=== PATIENT | male | born 1970 | race Caucasian/White ===

== ENCOUNTER 2020-11-13 23:09 | Emergency (ER) | payer BC ==
[2020-11-13] MEDS ORDERED: Sodium Chloride 0.9% 10 ML Syringe FLUSH PRN (23:32)
[2020-11-13] MEDS: Lactated Ringers 1,000 ML IV ONE (23:41)
--- NOTE | 2020-11-13 23:48 | EDM.PDOC ---
ED HPI GENERAL MEDICAL PROBLEM - General Time Seen by Provider: 11/13/20 23:15 Source of Information: Reports: Patient History Limitations: Reports: No Limitations - History of Present Illness INITIAL COMMENTS - FREE TEXT/NARRATIVE: Pt. presents to ER with complaints of fatigue, myalgias, global weakness, overexposure/exertion in heat, fever, and chills. Pt. states that she started feeling run down yesterday. He states that he was feeling poorly today and "took several naps". states that she gave the patient ibuprofen this evening and he woke up extremely diaphoretic. states that he was not checking his temp, but she states that he was "burning up". He states that he has not been eating or drinking well. He states that he had a tooth pulled last . Denies any pain to the area, but states that he has noticed some continued odd taste from the extraction site. He has not noted any swelling to the area. Pt. denies any cough. No chest congestion. Denies any sore throat, rhinorrhea, ear pain, sinus congestion, headache, neck pain. Denies any abdominal pain. Denies any dysuria. No pyuria, hematuria. Denies any rashes. No diarrhea, nausea, or vomiting. Pt. does have a history of MS and has infusions of Ocrevus, but has not had an infusion in several months. He states that the overall his MS has been under good control. He feels that the symptoms he is complaining of today are new. Onset Date: 11/12/20 Location: Reports: Generalized Associated Symptoms: Reports: Diaphoresis, Fever/Chills, Malaise, Weakness. Denies: Confusion, Chest Pain, Cough, cough w sputum, Headaches, Loss of Appetite, Nausea/Vomiting, Rash, Seizure, Shortness of Breath, Syncope Bilateral Leg Pain Score (Numeric/FACES): 4 - Related Data Allergies Allergy/AdvReac Type Severity Reaction Status Date / Time No Known Allergies Allergy Verified 07/15/19 15:00 Home Meds: Home Meds Cholecalciferol (Vitamin D3) [Vitamin D3] 2,000 unit PO DAILY 07/12/14 [History] Sildenafil [Viagra] 100 mg PO ASDIRECTED PRN 07/12/14 [History] ALPRAZolam [Xanax] 0.25 mg PO BEDTIME PRN 12/20/15 [History] DULoxetine [Cymbalta] 60 mg PO BID 12/20/15 [History] Dalfampridine [Ampyra] 10 mg PO BID 05/22/18 [History] Dextroamphetamine/Amphetamine [Adderall 20 mg Tablet] 20 mg PO DAILY 05/22/18 [History] Ocrelizumab [Ocrevus] 0 mg IV Q185D 05/22/18 [History] Past Medical History Other Musculoskeletal History: Patient has diagnosis of MS Neurological History: Reports: MS ED ROS GENERAL - Review of Systems Review Of Systems: See Below Constitutional: Reports: Fever, Chills, Malaise, Weakness, Fatigue, Night Sweats, Diaphoresis HEENT: Reports: Other (Dental extraction 11/09/20.) Respiratory: Reports: No Symptoms Cardiovascular: Reports: No Symptoms Endocrine: Reports: No Symptoms GI/Abdominal: Reports: No Symptoms. Denies: Abdominal Pain, Black Stool, Bloody Stool, Constipation, Diarrhea, Distension, Hematemesis, Hematochezia, Melena, Nausea, Vomiting : Reports: No Symptoms. Denies: Dysuria, Flank Pain, Frequency, Hematuria, Incontinence, Pain, Urgency, Urinary Retention Musculoskeletal: Reports: Joint Pain, Muscle Pain, Muscle Stiffness Skin: Reports: No Symptoms Neurological: Reports: Weakness, Other (History of MS, stable.). Denies: Confusion, Dizziness, Headache, Numbness, Paresthesia, Seizure, Syncope, Tingling, Tremors, Difficulty Walking, Change in Speech, Gait Disturbance Psychiatric: Reports: No Symptoms Hematologic/Lymphatic: Reports: No Symptoms Immunologic: Reports: No Symptoms ED EXAM, GENERAL - Physical Exam Exam: See Below Exam Limited By: No Limitations General Appearance: Alert, WD/WN, No Apparent Distress Eye Exam: Bilateral Eye: EOMI, Normal Fundi, Normal Inspection, PERRL Throat/Mouth: Normal Inspection, Other (Poor dentition. Evidence of recent extraction, L upper premolar.) Head: Atraumatic, Normocephalic Neck: Normal Inspection, Supple, Non-Tender, Full Range of Motion. No: Tender Midline Respiratory/Chest: No Respiratory Distress, Lungs Clear, Normal Breath Sounds, No Accessory Muscle Use, Chest Non-Tender Cardiovascular: Normal Peripheral Pulses, Regular Rate, Rhythm, No Edema, No JVD Peripheral Pulses: 4+: Radial (L) GI/Abdominal: Soft, Non-Tender, No Organomegaly, No Distention, No Mass, Pelvis Stable (Male) Exam: Deferred Rectal (Males) Exam: Deferred Back Exam: Normal Inspection, Full Range of Motion Extremities: Normal Inspection, Normal Range of Motion, Non-Tender, No Pedal Edema, Normal Capillary Refill Neurological: Alert, Oriented, CN II-XII Intact, Normal Cognition, Normal Gait, Normal Reflexes, No Motor/Sensory Deficits Psychiatric: Normal Affect, Normal Mood Skin Exam: Warm, Intact, Normal Color, No Rash, Other (mildly diaphoretic) Lymphatic: No Adenopathy #1 Interpretation Rhythm: NSR [place]: Normal P-Wave: Present QRS: Normal ST-T: Normal QT: Normal Course - Vital Signs Last Recorded V/S: Last Vital Signs Temp 36.6 C 11/13/20 23:09 Pulse 87 11/13/20 23:09 Resp 12 11/13/20 23:09 BP 113/65 11/13/20 23:09 Pulse Ox 93 L 11/13/20 23:09 - Orders/Labs/Meds Orders: Active Orders 24 hr Category Date Time Status Chest 1V Frontal [CR] Stat Exams 11/13/20 23:33 Taken CULTURE BLOOD [BC] Stat Lab 11/13/20 23:15 Received CULTURE BLOOD [BC] Stat Lab 11/13/20 23:42 Received [facility] [REF] Routine Lab 11/13/20 23:42 Received Blood Culture x2 Reflex Set [OM.PC] Stat Oth 11/13/20 23:33 Ordered Peripheral IV Insertion Adult [OM.PC] Routine Oth 11/13/20 23:33 Ordered Labs: Laboratory Tests 11/13/20 11/13/20 11/13/20 Range/Units 23:15 23:15 23:15 WBC 7.3 (4.0-10.0) x10^3/uL RBC 5.12 (4.5-6.0) x10^6/uL Hgb 16.0 (14.0-18.0) g/dL Hct 45.3 (40.0-52.0) % MCV 88.5 (78.0-93.0) fL MCH 31.3 (26.0-32.0) pg MCHC 35.3 (32.0-36.0) g/dL RDW Coeff of Beckie 14.9 (10.0-15.0) % Plt Count 182 (130-400) x10^3/uL Neut % (Auto) 78.4 (50.0-80.0) % Lymph % (Auto) 12.2 L (25.0-50.0) % [place] % (Auto) 9.0 (2.0-11.0) % Eos % (Auto) 0.0 (0.0-4.0) % Baso % (Auto) 0.4 (0.2-1.2) % Sodium 140 (136-145) mmol/L Potassium 3.7 (3.5-5.1) mmol/L Chloride 103 (98-107) mmol/L Carbon Dioxide 23 (21-32) mmol/L Anion Gap 17.7 H (5-15) mmol/L BUN 14 (7-18) mg/dL Creatinine 1.1 (0.70-1.30) mg/dL Est Cr Clr Drug Dosing 90.80 mL/min Estimated GFR (MDRD) > 60 Glucose 107 H (70-99) mg/dL Lactic Acid 0.4 (0.4-2.0) mmol/L Calcium 8.1 L (8.5-10.1) mg/dL Corrected Calcium 8.5 (8.5-10.1) mg/dL Phosphorus 2.8 (2.6-4.7) mg/dL Magnesium 1.8 (1.8-2.4) mg/dL Total Bilirubin 0.5 (0.2-1.0) mg/dL AST 18 (15-37) U/L ALT 26 (16-63) U/L Alkaline Phosphatase 68 (46-116) U/L Troponin I High Sens 5 (<=76) ng/L C-Reactive Protein 5.2 H (<=0.9) mg/dL NT-Pro-B Natriuret Pep 149 H (<=125) pg/mL Total Protein 6.2 L (6.4-8.2) g/dL Albumin 3.5 (3.4-5.0) g/dL Globulin 2.7 Albumin/Globulin Ratio 1.30 Urine Color (YELLOW) Urine Appearance (CLEAR) Urine pH (5.0-8.0) Ur Specific [place] Urine Protein (NEGATIVE) mg/dL Urine Glucose (UA) (NEGATIVE) mg/dL Urine Ketones (NEGATIVE) mg/dL Urine Occult Blood (NEGATIVE) Urine Nitrite (NEGATIVE) Urine Bilirubin (NEGATIVE) Urine Urobilinogen (0.2) EU/dL Ur Leukocyte Esterase (NEGATIVE) Urine RBC (NOT SEEN) /HPF Urine WBC (NOT SEEN) /HPF Ur Squamous Epith Cells (NOT SEEN) /HPF Amorphous Sediment Urine Bacteria (NOT SEEN) /HPF Urine Mucus (NOT SEEN) /LPF Urine Opiates Screen (NEAGTIVE) Ur Buprenorphine Scrn (NEGATIVE) Ur Oxycodone Screen (NEGATIVE) Urine Methadone Screen (NEGATIVE) Ur Barbiturates Screen (NEGATIVE) Ur Phencyclidine Scrn (NEGATIVE) Ur Amphetamine Screen (NEGATIVE) U Methamphetamines Scrn (NEGATIVE) Urine MDMA Screen (NEGATIVE) U Benzodiazepines Scrn (NEGATIVE) U Cocaine Metab Screen (NEGATIVE) U Marijuana (THC) Screen (NEGATIVE) Ethyl Alcohol < 3 (0-3) mg/dL Influenza Type A RNA (NEGATIVE) Influenza Type B RNA (NEGATIVE) SARS-CoV-2 RNA (PALLAVI) (NEGATIVE) 11/13/20 11/13/20 11/13/20 Range/Units 23:27 23:39 23:39 WBC (4.0-10.0) x10^3/uL RBC (4.5-6.0) x10^6/uL Hgb (14.0-18.0) g/dL Hct (40.0-52.0) % MCV (78.0-93.0) fL MCH (26.0-32.0) pg MCHC (32.0-36.0) g/dL RDW Coeff of Beckie (10.0-15.0) % Plt Count (130-400) x10^3/uL Neut % (Auto) (50.0-80.0) % Lymph % (Auto) (25.0-50.0) % [place] % (Auto) (2.0-11.0) % Eos % (Auto) (0.0-4.0) % Baso % (Auto) (0.2-1.2) % Sodium (136-145) mmol/L Potassium (3.5-5.1) mmol/L Chloride (98-107) mmol/L Carbon Dioxide (21-32) mmol/L Anion Gap (5-15) mmol/L BUN (7-18) mg/dL Creatinine (0.70-1.30) mg/dL Est Cr Clr Drug Dosing mL/min Estimated GFR (MDRD) Glucose (70-99) mg/dL Lactic Acid (0.4-2.0) mmol/L Calcium (8.5-10.1) mg/dL Corrected Calcium (8.5-10.1) mg/dL Phosphorus (2.6-4.7) mg/dL Magnesium (1.8-2.4) mg/dL Total Bilirubin (0.2-1.0) mg/dL AST (15-37) U/L ALT (16-63) U/L Alkaline Phosphatase (46-116) U/L Troponin I High Sens (<=76) ng/L C-Reactive Protein (<=0.9) mg/dL NT-Pro-B Natriuret Pep (<=125) pg/mL Total Protein (6.4-8.2) g/dL Albumin (3.4-5.0) g/dL Globulin Albumin/Globulin Ratio Urine Color Dark yellow H (YELLOW) Urine Appearance Slightly cloudy H (CLEAR) Urine pH 5.5 (5.0-8.0) Ur Specific [place] >=1.030 Urine Protein Trace H (NEGATIVE) mg/dL Urine Glucose (UA) Negative (NEGATIVE) mg/dL Urine Ketones Trace H (NEGATIVE) mg/dL Urine Occult Blood Negative (NEGATIVE) Urine Nitrite Negative (NEGATIVE) Urine Bilirubin Small H (NEGATIVE) Urine Urobilinogen 1.0 (0.2) EU/dL Ur Leukocyte Esterase Negative (NEGATIVE) Urine RBC 0-5 (NOT SEEN) /HPF Urine WBC 0-5 (NOT SEEN) /HPF Ur Squamous Epith Cells Rare (NOT SEEN) /HPF Amorphous Sediment Few Urine Bacteria Rare (NOT SEEN) /HPF Urine Mucus Moderate H (NOT SEEN) /LPF Urine Opiates Screen Positive H (NEAGTIVE) Ur Buprenorphine Scrn Negative (NEGATIVE) Ur Oxycodone Screen Negative (NEGATIVE) Urine Methadone Screen Negative (NEGATIVE) Ur Barbiturates Screen Negative (NEGATIVE) Ur Phencyclidine Scrn Negative (NEGATIVE) Ur Amphetamine Screen Positive H (NEGATIVE) U Methamphetamines Scrn Negative (NEGATIVE) Urine MDMA Screen Negative (NEGATIVE) U Benzodiazepines Scrn Negative (NEGATIVE) U Cocaine Metab Screen Negative (NEGATIVE) U Marijuana (THC) Screen Negative (NEGATIVE) Ethyl Alcohol (0-3) mg/dL Influenza Type A RNA Negative (NEGATIVE) Influenza Type B RNA Negative (NEGATIVE) SARS-CoV-2 RNA (PALLAVI) Negative (NEGATIVE) Meds: Medications Discontinued Medications Generic Name Dose Route Start Last Admin Trade Name Freq PRN Reason Stop Dose Admin Lactated Ringer's 1,000 mls @ 1,000 mls/hr 11/13/20 23:35 11/13/20 23:41 Ringers, Lactated IV 11/14/20 00:34 1,000 mls/hr ONETIME ONE Administration Sodium Chloride 10 ml 11/13/20 23:32 Sodium Chloride 0.9% 10 Ml Syringe FLUSH ASDIRECTED PRN Keep Vein Open - Radiology Interpretation Free Text/Narrative:: chest x-ray negative for acute pathology - Re-Assessments/Exams Free Text/Narrative Re-Assessment/Exam: 11/14/20 00:52 Pt. reported feeling somewhat better after a liter of LR in ER. Departure - Departure Time of Disposition: 00:45 Disposition: Home, Self-Care 01 Clinical Impression: Dehydration - Discharge Information Instructions: Dehydration, Adult, [id number] Referrals: PCP,None [Primary Care Provider] - Forms: ED Department Discharge Additional Instructions: Home to rest. Push fluids. We will let you know if your [place] or blood cultures come back positive. Recheck in clinic in 7-10 days, sooner if not gradually improving. Return to ER if you have any chest pain, shortness of breath, racing heart, abdominal pain, headache or call if you have questions. Sepsis Event Note (ED) - Focused Exam Vital Signs: Vital Signs Temp Pulse Resp BP Pulse Ox 11/13/20 23:09 36.6 C 87 12 113/65 93 L - My Orders Last 24 Hours: My Active Orders 11/13/20 23:15 CULTURE BLOOD [BC] Stat 11/13/20 23:33 Chest 1V Frontal [CR] Stat Blood Culture x2 Reflex Set [OM.PC] Stat Peripheral IV Insertion Adult [OM.PC] Routine 11/13/20 23:42 CULTURE BLOOD [BC] Stat [facility] [REF] Routine - Assessment/Plan Last 24 Hours: My Active Orders 11/13/20 23:15 CULTURE BLOOD [BC] Stat 11/13/20 23:33 Chest 1V Frontal [CR] Stat Blood Culture x2 Reflex Set [OM.PC] Stat Peripheral IV Insertion Adult [OM.PC] Routine 11/13/20 23:42 CULTURE BLOOD [BC] Stat [facility] [REF] Routine Plan: Home to rest. Push fluids. We will let you know if your [place] or blood cultures come back positive. Recheck in clinic in 7-10 days, sooner if not gradually improving. Return to ER if you have any chest pain, shortness of breath, racing heart, abdominal pain, headache or call if you have questions.
[2020-11-13 23:53] VITALS: BP 113/65; PULSE 87
[2020-11-13 23:58] LABS: BARBITURATE SCREEN,URINE NEGATIVE (NEGATIVE)
[2020-11-13 23:59] LABS: BENZODIAZEPINES SCREEN,URINE NEGATIVE (NEGATIVE); METHAMPHETAMINE SCREEN, URINE NEGATIVE (NEGATIVE); THC SCREEN,URINE 50 NG/ML NEGATIVE (NEGATIVE)
[2020-11-14 00:15] LABS: CHLORIDE,CL 103 mmol/L (98-107); SODIUM,NA 140 mmol/L (136-145)
[2020-11-14 00:17] LABS: ANION GAP 17.7 mmol/L (5-15)
[2020-11-14 00:26] LABS: CORONAVIRUS COVID-19 NAA NEGATIVE (NEGATIVE)
--- NOTE | 2020-11-14 13:01 | CR ---
[id number] RAD/RAD Chest Portable EXAM: RAD Chest Portable INDICATION: FEVER,FATIGUE COMPARISON: None. DISCUSSION/IMPRESSION: Cardiomediastinal silhouette is normal in size and contour. Lungs are clear. No pleural effusion or pneumothorax. Rony Witt MD 11/14/20 1300 Thank you for allowing us to participate in the care of your patient.
== END 2020-11-14 00:40 | disposition home or self-care (01) ==
LOC: VM.ED 23:09
DX: E86.0 Dehydration (principal); Z20.822 Contact with and (suspected) exposure to COVID-19
CPT/HCPCS: 0240U; 36415; 71045; 80053; 80305-QW; 80307; 81001; 83605; 83735; 83880; 84100; 84484; 85025; 86140; 86788; 87040; 93005; 99283; J7120

== ENCOUNTER 2022-04-15 10:24 | Day surgery (SDC) | payer BC ==
[~2022-04-15 10:24] MED LIST: Lactated Ringers 1,000 ML IV SCH
[2022-04-15] MEDS ORDERED: Propofol 200 MG/20 ML SDV ONE ×3 (11:12→12:48)
[2022-04-15] MEDS ORDERED: fentaNYL 100 MCG/2 ML SDV ONE (11:12)
[2022-04-15 13:17] VITALS: BP 105/63; PULSE 95
== END 2022-04-15 14:15 | disposition home or self-care (01) ==
LOC: VM.SDS 10:24
PROVIDERS: ATTEND Surgery
DX: Z12.11 Encounter for screening for malignant neoplasm of colon (principal); D12.6 Benign neoplasm of colon, unspecified; F41.9 Anxiety disorder, unspecified; N52.9 Male erectile dysfunction, unspecified; Z98.890 Other specified postprocedural states; Z79.899 Other long term (current) drug therapy; Z87.891 Personal history of nicotine dependence
CPT/HCPCS: 00812; J2704; J3010; J7120

== ENCOUNTER 2022-12-21 10:04 | Emergency (ER) | payer BC ==
[2022-12-21 10:20] VITALS: BP 118/65; PULSE 104
== END 2022-12-21 10:33 | disposition home or self-care (01) ==
LOC: VM.ED 10:04
DX: J32.9 Chronic sinusitis, unspecified (principal)
CPT/HCPCS: 99283

== ENCOUNTER 2024-06-20 20:55 | Emergency (ER) | payer BC ==
[2024-06-20 21:31] LABS: BASOPHILS PERCENT AUTO 0.2 % (0.2-1.2); EOSINOPHILS ABSOLUTE AUTO 0.1 x10^3/uL (0.0-0.5); EOSINOPHILS PERCENT AUTO 0.8 % (0.0-4.0); HEMATOCRIT 46.7 % (40.0-52.0); HEMOGLOBIN 16.2 g/dL (14.0-18.0); IMMATURE GRAN ABSOLUTE AUTO 0.08 x10^3/uL (0.00-0.07); LYMPHOCYTES ABSOLUTE AUTO 3.5 x10^3/uL (1.0-4.8); LYMPHOCYTES PERCENT AUTO 20.3 % (25.0-50.0); MEAN CORPUSCULAR HGB CONC 34.7 g/dL (32.0-36.0); MEAN CORPUSCULAR VOLUME 89.5 fL (78.0-93.0); MONOCYTES ABSOLUTE AUTO 1.3 x10^3/uL (0.0-0.8); MONOCYTES PERCENT AUTO 7.4 % (2.0-11.0); NEUTROPHILS ABSOLUTE AUTO 12.3 x10^3/uL (1.8-7.7); NEUTROPHILS PERCENT AUTO 70.8 % (50.0-80.0); PLATELET COUNT,PLT 297 x10^3/uL (130-400); RED BLOOD CELL COUNT 5.22 x10^6/uL (4.5-6.0); WHITE BLOOD CELL COUNT,WBC 17.3 x10^3/uL (4.0-10.0)
[2024-06-20 21:44] VITALS: BP 129/80; PULSE 93
[2024-06-20 21:54] LABS: A/G RATIO 1.52; ALBUMIN 3.8 g/dL (3.4-5.0); ANION GAP 8.7 mmol/L (5-15); BILIRUBIN TOTAL 0.5 mg/dL (0.2-1.0); CALCIUM 9.1 mg/dL (8.5-10.1); CREATININE 1.1 mg/dL (0.70-1.30); EST CRCL DRUG DOSING (CG) 86.76 mL/min; POTASSIUM,K 3.7 mmol/L (3.5-5.1); PROTEIN TOTAL,TP 6.3 g/dL (6.4-8.2)
[2024-06-20 21:55] LABS: PROTHROMBIN TIME 10.2 SEC (8.9-11.5); PTT,PARTIAL THROMBOPLSTIN TIME 23.9 SEC (21.9-33.8)
== END 2024-06-20 23:03 | disposition home or self-care (01) ==
LOC: VM.ED 20:55
DX: R23.3 Spontaneous ecchymoses (principal); D72.829 Elevated white blood cell count, unspecified
CPT/HCPCS: 36415; 80053; 85025; 85610; 85652; 85730; 86140; 99283; 99284